=== PATIENT | female | born 1980 | race Two or more races ===

== ENCOUNTER 2019-05-10 05:05 | Day surgery (SDC) | payer OTHER ==
[~2019-05-10 05:05] MED LIST: CLONAZEPAM0.5 MG PO; CLONAZEPAM1 MG PO; PLAQUENIL PO; TRAMADOL HCL50 MG PO; XARELTO20 MG; XARELTO20 MG PO; ZOLOFT100 MG PO
== END 2019-05-10 12:29 | disposition home or self-care (01) ==
LOC: CIR.AMB 05:05
DX: N60.21 Fibroadenosis of right breast (principal); N64.52 Nipple discharge

== ENCOUNTER 2022-02-04 06:00 | Day surgery (SDC) | payer OTHER ==
[~2022-02-04 06:00] MED LIST changes: +ATIVAN1 M1 PO; +DEPAKOTE ER500 MG PO; +PAXIL40 MG PO; +TOPROL XL25 M1 PO; +UNITHROID50 MCG PO; +WELLBUTRIN SR200 MG PO; +[UNRECOGNIZED DRUG - OTHER] PO
== END 2022-02-04 15:45 | disposition home or self-care (01) ==
LOC: CIR.AMB 06:00
PROVIDERS: ATTEND Surgery
DX: Z15.01 Genetic susceptibility to malignant neoplasm of breast (principal); N60.32 Fibrosclerosis of left breast; N62 Hypertrophy of breast; N60.81 Other benign mammary dysplasias of right breast; N64.52 Nipple discharge; I10 Essential (primary) hypertension; J45.909 Unspecified asthma, uncomplicated; E03.9 Hypothyroidism, unspecified; G43.909 Migraine, unspecified, not intractable, without status migrainosus; E66.9 Obesity, unspecified; Z79.02 Long term (current) use of antithrombotics/antiplatelets; Z42.1 Encounter for breast reconstruction following mastectomy

== ENCOUNTER 2022-04-14 06:46 | Day surgery (SDC) | payer OTHER ==
[2022-04-14] MEDS ORDERED: ACETAMINOPHEN-1 EAC2 PO (15:56)
[2022-04-14] MEDS ORDERED: NAPROXEN SODIU550 MG PO (15:57)
[2022-04-14] MEDS ORDERED: COLACE100 MG PO (15:58)
== END 2022-04-14 18:55 | disposition home or self-care (01) ==
LOC: CIR.AMB 06:46
PROVIDERS: ATTEND Obstetrics & Gynecology
DX: N83.8 Other noninflammatory disorders of ovary, fallopian tube and broad ligament (principal); N83.292 Other ovarian cyst, left side; N83.291 Other ovarian cyst, right side; N83.02 Follicular cyst of left ovary; N83.01 Follicular cyst of right ovary; N70.11 Chronic salpingitis; Z20.822 Contact with and (suspected) exposure to COVID-19; Z91.040 Latex allergy status; Z88.8 Allergy status to other drugs, medicaments and biological substances

== ENCOUNTER 2022-05-18 14:39 | Outpatient (CLI) | payer OTHER ==
[~2022-05-18 14:39] MED LIST changes: +ACETAMINOPHEN-1 EAC2 PO; +COLACE100 MG PO; +NAPROXEN SODIU550 MG PO
== END 2022-05-18 14:40 | disposition home or self-care (01) ==
LOC: LAB 14:39
PROVIDERS: ATTEND Obstetrics & Gynecology
DX: Z20.828 Contact with and (suspected) exposure to other viral communicable diseases (principal); Z20.818 Contact with and (suspected) exposure to other bacterial communicable diseases

== ENCOUNTER 2022-11-18 07:32 | Day surgery (SDC) | payer OTHER | END 2022-11-18 15:00 | disposition home or self-care (01) | LOC: CIR.AMB 07:32 | PROVIDERS: ATTEND Plastic Surgery | DX: Z90.13 Acquired absence of bilateral breasts and nipples (principal); Z15.01 Genetic susceptibility to malignant neoplasm of breast; L90.5 Scar conditions and fibrosis of skin; N64.89 Other specified disorders of breast; N64.81 Ptosis of breast; Z88.1 Allergy status to other antibiotic agents; Z91.040 Latex allergy status; E03.9 Hypothyroidism, unspecified ==

== ENCOUNTER 2023-01-13 06:13 | Day surgery (SDC) | payer OTHER ==
[~2023-01-13 06:13] MED LIST changes: +WARFARIN SODIU7.5 MG PO
== END 2023-01-13 18:20 | disposition home or self-care (01) ==
LOC: CIR.AMB 06:13
PROVIDERS: ATTEND Plastic Surgery
DX: Z90.13 Acquired absence of bilateral breasts and nipples (principal); Z15.01 Genetic susceptibility to malignant neoplasm of breast; N64.1 Fat necrosis of breast; Z88.8 Allergy status to other drugs, medicaments and biological substances; E66.09 Other obesity due to excess calories